=== PATIENT | female | born 1995 | race Caucasian/White ===

== ENCOUNTER 2022-12-18 12:54 | Outpatient (CLI) | payer OTHER ==
[~2022-12-18 12:54] MED LIST: GADOBUTROL 10 MMOL/10 ML VIAL ONE; GADOBUTROL 7.5 MMOL/7.5 ML VIAL ONE
== END 2022-12-18 12:55 | disposition home or self-care (01) ==
LOC: DI 12:54
PROVIDERS: ATTEND Student in an Organized Health Care Education/Training Program
DX: Z53.9 Procedure and treatment not carried out, unspecified reason (principal)